=== PATIENT | female | born 1995 | race Caucasian/White ===

== ENCOUNTER 2022-05-30 18:51 | Emergency (ER) | payer MEDICAID ==
[~2022-05-30] VITALS: Ht 160 cm; Wt 65.8 kg
[~2022-05-30 18:51] MED LIST: FERR325E14 PO; OSC500 PO; PREN-385 PO
[2022-05-30 19:07] VITALS: BP 121/58
--- NOTE | 2022-05-30 19:48 | NUR ---
PT TAKEN TO BED 3
--- NOTE | 2022-05-30 19:54 | NUR ---
FARHAN VALENCIA AT BEDSIDE
[2022-05-30] MEDS ORDERED: BACITRACIN OINT 500 UNITS/GM PKT TP ONE ×2 (20:00→20:15)
[2022-05-30] MEDS ORDERED: ACETAMINOPHEN 325 MG TAB PO ONE (20:00)
--- NOTE | 2022-05-30 20:15 | NUR ---
VERBAL ORDER RECIEVED FOR 2500MG BACITRACIN OINT TOPICAL. ORDER CARRIED OUT.
--- NOTE | 2022-05-30 20:17 | NUR ---
FARHAN COOLEY AT BEDSIDE.
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
[2022-05-30] MEDS ORDERED: ACET-2214 PO (20:33)
[2022-05-30] MEDS ORDERED: BACI1PAC6 TP (20:33)
[2022-05-30] MEDS ORDERED: SULF-59 PO (20:33)
--- NOTE | 2022-05-30 20:53 | NUR ---
Patient discharged with v/s stable. Written and verbal after care instructions given and explained. Patient alert, oriented and verbalized understanding of instructions. Ambulatory with steady gait. All questions addressed prior to discharge. ID band removed. Patient advised to follow up with PMD. Rx of ACETAMIOJPHEN, BACITRAIN ZINC, SULFAMETHOZAZOLE given. Opportunity to ask questions provided and answered.
--- NOTE | 2022-05-30 20:56 | NUR ---
The patient's care was reviewed and supervised by Hope Cm RN.
== END 2022-05-30 20:53 | disposition home or self-care (01) ==
LOC: MED 18:51
DX: T24.011A Burn of unspecified degree of right thigh, initial encounter (principal); T22.051A Burn of unspecified degree of right shoulder, initial encounter; T31.0 Burns involving less than 10% of body surface; Z88.0 Allergy status to penicillin; Z91.018 Allergy to other foods
CPT/HCPCS: 99284